=== PATIENT | female | born 1945 | race Caucasian/White ===

== ENCOUNTER 2020-07-13 13:28 | Outpatient (CLI) | payer MEDICARE ==
[2020-07-14 01:27] LABS: SARS-CoV-2 PCR by NAA Not Detected (NotDetected)
== END 2020-07-13 13:29 | disposition home or self-care (01) ==
LOC: CSHLAB 13:28
PROVIDERS: ATTEND Internal Medicine Gastroenterology
DX: Z20.822 Contact with and (suspected) exposure to COVID-19 (principal); Z12.11 Encounter for screening for malignant neoplasm of colon
CPT/HCPCS: 87635; U0003; U0005

== ENCOUNTER 2020-07-18 08:51 | Day surgery (SDC) | payer MEDICARE ==
[2020-07-15 12:16] VITALS: BMI 26.4
[2020-07-18] MEDS ORDERED: Lidocaine 1% MPF 2 ML VIAL ONE (09:47)
[2020-07-18] MEDS ORDERED: PROPOFOL 20 ML ONE ×2 (10:41→10:59)
[2020-07-18] MEDS ORDERED: Lidocaine 1% PF 5 ML VIAL ONE (10:41)
== END 2020-07-18 12:10 | disposition home or self-care (01) ==
LOC: CSHSDC 08:51
PROVIDERS: ATTEND Internal Medicine Gastroenterology
PROC: 0DJD8ZZ Inspection of Lower Intestinal Tract, Via Natural or Artificial Opening Endoscopic (ICD-10-PCS; principal; 2020-07-18)
DX: Z12.11 Encounter for screening for malignant neoplasm of colon (principal); K57.30 Diverticulosis of large intestine without perforation or abscess without bleeding; K64.9 Unspecified hemorrhoids; Z85.3 Personal history of malignant neoplasm of breast
CPT/HCPCS: J2704

== ENCOUNTER 2022-09-03 09:50 | Outpatient (CLI) | payer MEDICARE | END 2022-09-03 09:51 | disposition home or self-care (01) | LOC: CSHMAMMO 09:50 | PROVIDERS: ATTEND Internal Medicine | DX: M85.88 Other specified disorders of bone density and structure, other site (principal) | CPT/HCPCS: 77080 ==